=== PATIENT | female | born 1940 | race Caucasian/White ===

== ENCOUNTER 2017-02-16 07:28 | Day surgery (SDC) | payer MEDICARE, BC, OTHER ==
--- NOTE | ~2017-02-16 | EGD ---
EGD REPORT [facility] [address] [place] [place] [address] NAME: MARU MARQUEZ : [birth year] STATUS : REG [facility]#: [id number] AGE: 76 ADM/REG DATE : 02/16/17 MR#: [id number] REPORT SERV DATE: 02/16/17 DICTATED BY: NEYMAR WALLACE DATE: 02/16/17 REPORT STATUS : Draft [facility]: [facility] DATE: 02/16/17 Endoscopy Center Patient Name: Maru Marquez Date of : 1940 Attending MD: NEYMAR WALLACE MD Procedure Date No Time: 02/16/2017 Procedure: Colonoscopy Indications: High risk colon cancer surveillance: Personal history of colonic polyps, Incidental - Abdominal pain in the left lower quadrant Referring MD: AMBAR OVALLE Medicines: Monitored Anesthesia Care Complications: No immediate complications. Procedure: Pre-Anesthesia Assessment: - ASA Grade Assessment: III - A patient with severe systemic disease. After I obtained informed consent, the scope was passed under direct vision. Throughout the procedure, the patient's blood pressure, pulse, and oxygen saturations were monitored continuously. The [facility] [id number] was introduced through the anus and advanced to the cecum, identified by appendiceal orifice and ileocecal valve. The colonoscopy was performed without difficulty. The patient tolerated the procedure well. The quality of the bowel preparation was good. Findings: The digital rectal exam was normal. Pertinent negatives include no palpable rectal lesions. Three sessile polyps were found in the cecum. The polyps were 4 to 7 mm in size. These polyps were removed with a cold biopsy forceps. Resection and retrieval were complete. Multiple diverticula were found in the sigmoid colon and in the descending colon. Anastomosis from prior colon resection noted in the sigmoid colon. Hemorrhoids were found during retroflexion and were moderate. Impression: - Three 4 to 7 mm polyps in the cecum. Resected and retrieved. - Diverticulosis in the sigmoid colon and in the descending colon. - Hemorrhoids. Recommendation: - Patient has a contact number available for emergencies. The signs and symptoms of potential delayed EGD REPORT [address] [place]. [address] NAME: MARU MARQUEZ : [birth year] STATUS : REG [facility]#: [id number] AGE: 76 ADM/REG DATE : 02/16/17 MR#: [id number] REPORT SERV DATE: 02/16/17 DICTATED BY: NEYMAR WALLACE DATE: 02/16/17 REPORT STATUS : Draft TRANSCRIBED BY: [employer] DATE: 02/16/17 complications were discussed with the patient. Return to normal activities tomorrow. Written discharge instructions were provided to the patient. - Regular diet. - Regular diet. - Continue present medications. - Repeat colonoscopy in 3 - 5 years for surveillance based on pathology results. - Return to GI clinic in 1 month. Procedure Code(s): --- Professional --- 28192, Colonoscopy, flexible, proximal to splenic flexure; with biopsy, single or multiple Diagnosis Code(s): --- Professional --- D12.0, Benign neoplasm of cecum K64.9, Unspecified hemorrhoids K57.30, Diverticulosis of large intestine without perforation or abscess without bleeding Z86.010, Personal history of colonic polyps CPT copyright 2013 [employer]. All rights reserved. The codes documented in this report are preliminary and upon medical biller coder review may be revised to meet current compliance requirements. NEYMAR WALLACE MD 02/16/2017 9:27 AM This report has been signed electronically. Number of Addenda: 0 Note Initiated On: 02/16/2017 8:46 AM Scope Withdrawal Time 0 hours 12 minutes 2 seconds [id number] [place] [id number]
--- NOTE | ~2017-02-16 | EGD ---
EGD REPORT [facility] [address] [place] [address] NAME: MARU MARQUEZ : [birth year] STATUS : REG [facility]#: [id number] AGE: 76 ADM/REG DATE : 02/16/17 MR#: [id number] REPORT SERV DATE: 02/16/17 DICTATED BY: NEYMAR WALLACE DATE: 02/16/17 REPORT STATUS : Draft [facility] DATE: 02/16/17 Endoscopy Center Patient Name: Maru Marquez Date of : 1940 Attending MD: NEYMAR WALLACE MD Procedure Date No Time: 02/16/2017 Procedure: Upper GI endoscopy Indications: Abdominal pain in the left upper quadrant, Dyspepsia, Chest pain (non cardiac) Referring MD: AMBAR OVALLE Medicines: Monitored Anesthesia Care Complications: No immediate complications. Procedure: Pre-Anesthesia Assessment: - ASA Grade Assessment: III - A patient with severe systemic disease. After obtaining informed consent, the endoscope was passed under direct vision. Throughout the procedure, the patient's blood pressure, pulse, and oxygen saturations were monitored continuously. The GIF H190 [id number] was introduced through the mouth, and advanced to the second part of duodenum. The upper GI endoscopy was accomplished without difficulty. The patient tolerated the procedure well. Findings: The examined esophagus was normal. One non-bleeding gastric ulcer with no stigmata of bleeding was found in the gastric antrum. The lesion was 2 mm in largest dimension. Biopsies were taken with a cold forceps for histology. Localized moderate inflammation characterized by erosions and erythema was found in the gastric antrum. Biopsies were taken with a cold forceps for histology. The cardia and gastric fundus were normal on retroflexion. Patchy moderate inflammation characterized by erosions was found in the gastric body. The duodenal bulb and 2nd part of the duodenum were normal. Biopsies were taken with a cold forceps for histology. Impression: - Normal esophagus. - Gastric ulcer with clean base. Biopsied. - Gastritis. Biopsied. - Gastritis. - Normal duodenal bulb and 2nd part of the duodenum. Biopsied. EGD REPORT [address] [address] NAME: MARU MARQUEZ : [birth year] STATUS : REG [facility]#: [id number] AGE: 76 ADM/REG DATE : 02/16/17 MR#: [id number] REPORT SERV DATE: 02/16/17 DICTATED BY: NEYMAR WALLACE DATE: 02/16/17 REPORT STATUS : Draft TRANSCRIBED BY: [employer] DATE: 02/16/17 Recommendation: - Use Prilosec (omeprazole) 40 mg PO daily. - Await pathology results. - Follow an antireflux regimen. Procedure Code(s): --- Professional --- 47363, Esophagogastroduodenoscopy, flexible, transoral; with biopsy, single or multiple Diagnosis Code(s): --- Professional --- K25.9, Gastric ulcer, unspecified as acute or chronic, without hemorrhage or perforation K29.70, Gastritis, unspecified, without bleeding R10.12, Left upper quadrant pain K30, Functional dyspepsia R07.89, Other chest pain CPT copyright 2013 [employer]. All rights reserved. The codes documented in this report are preliminary and upon wood chopper review may be revised to meet current compliance requirements. NEYMAR WALLACE MD 02/16/2017 9:04 AM This report has been signed electronically. Number of Addenda: 0 Note Initiated On: 02/16/2017 8:47 AM Scope Withdrawal Time 0 hours 0 minutes 0 seconds [id number] [place] [id number]
[~2017-02-16 07:28] MED LIST: ALLEGRA180 PO; AMB5 PO; ASAB PO; ASABAYER PO; ASAEC PO; BETAP120 PO; BETAPACE80 PO; BION TEARS OPH; BIST PO; CALCIUM PO; CALTRA600D PO; CEFT5 PO; CENTRUM PO; CENTRUM TAB1 TAB PO; CLARIT10 PO; CORDARONE PO; COREG3 PO; CRESTOR10 PO; CYMBALTA30 PO; CYMBALTA60 PO; D.O.S.100 MG PO; DEPAKOTEER PO; ELIQUIS 5 MG TAB5 MG PO; FISH-EPA1000 MG PO; FLONASE NAS; INSPRA25 PO; KLOR-CON M2020 MEQ PO; L20 PO; LAN125 PO; LIPITOR80 MG PO; LIVALO1 MG PO; MAGOX4 PO; MAXIMUM D3 PO; MELATONIN PO; MELATONIN10 M2 PO; METAMUCIL CAN7 OZ PO; MIRALAXPKT PO; MULTIVITAMI1 PO; MYRBETRIQ25 MG PO; NITROQUICK0.4 MG SL; NITROSTAT0.4 MG SL; NORCO1 TA1 PO; OS500+D PO; PARC25-100 PO; PLAVIX PO; PRILO PO; PRIN10 PO; PRIN2.5 PO; PROAMAT5 PO; PROTONIX PO; SEROQUEL200 MG PO; SEROQUEL25 PO; SEROQUEL50 MG PO; SIN25 PO; SYN1 PO; SYN88 PO; SYNTHROID137 MCG PO; TEARS PURE OPH; TEG200 PO; TRAVATAN OPH; TRAVATAN Z0.004 % OPH; TRAZ50 PO; ULTRAM50 PO; VIT D OTC PO; VITAMIN C100 MG PO; X25 PO; X5 PO; XANAX1 MG PO; ZANTAC150 MG PO; ZESTRIL2.5 MG PO; ZYRTEC ALLGY10 MG PO
== END 2017-02-16 23:59 | disposition home or self-care (01) ==
LOC: DMU 07:28
PROVIDERS: Internal Medicine Gastroenterology
PROC: 0DBH8ZX Excision of Cecum, Via Natural or Artificial Opening Endoscopic, Diagnostic (ICD-10-PCS; 2017-02-16)
PROC: 0DB98ZX Excision of Duodenum, Via Natural or Artificial Opening Endoscopic, Diagnostic (ICD-10-PCS; principal; 2017-02-16 09:00)
PROC: 0DB68ZX Excision of Stomach, Via Natural or Artificial Opening Endoscopic, Diagnostic (ICD-10-PCS; 2017-02-16 09:00)
DX: D12.0 Benign neoplasm of cecum (principal); K29.00 Acute gastritis without bleeding; K64.9 Unspecified hemorrhoids; K57.30 Diverticulosis of large intestine without perforation or abscess without bleeding; I10 Essential (primary) hypertension; I48.91 Unspecified atrial fibrillation; I25.10 Atherosclerotic heart disease of native coronary artery without angina pectoris; G43.909 Migraine, unspecified, not intractable, without status migrainosus; E78.00 Pure hypercholesterolemia, unspecified; M81.0 Age-related osteoporosis without current pathological fracture; E03.9 Hypothyroidism, unspecified; F32.9 Major depressive disorder, single episode, unspecified; F41.9 Anxiety disorder, unspecified; Z88.5 Allergy status to narcotic agent; Z79.52 Long term (current) use of systemic steroids; Z79.899 Other long term (current) drug therapy; Z90.89 Acquired absence of other organs; Z98.1 Arthrodesis status; Z86.010 Personal history of colon polyps; Z90.49 Acquired absence of other specified parts of digestive tract; Z90.710 Acquired absence of both cervix and uterus; Z98.41 Cataract extraction status, right eye; Z98.42 Cataract extraction status, left eye
CPT/HCPCS: 88305; 88342